=== PATIENT | male | born 1985 | race Caucasian/White ===

== ENCOUNTER 2021-03-12 16:45 | Emergency (ER) | payer SELFPAY ==
[2021-03-12] MEDS ORDERED: methylPREDNISolone Sodium Succinate 125 MG/2 ML SDV IM ONE (17:13)
[2021-03-12] MEDS ORDERED: Albuterol/Ipratropium 3.0-0.5 MG/3 ML Neb Soln NEB ONE (17:13)
[2021-03-12] MEDS ORDERED: Dexamethasone 10 MG/ML SDV PO ONE (17:20)
--- NOTE | 2021-03-12 17:20 | EDM.PDOC ---
ED HPI GENERAL MEDICAL PROBLEM - General Chief Complaint: Respiratory Problem Stated Complaint: SHORTNESS OF BREATH, COUGH Time Seen by Provider: 03/12/21 16:47 Source of Information: Reports: Patient History Limitations: Reports: No Limitations - History of Present Illness INITIAL COMMENTS - FREE TEXT/NARRATIVE: HISTORY AND PHYSICAL: History of present illness: Patient is a 35-year-old male with a history of morbid obesity, and type 2 diabetes, who presents emergency room today with concern of cough, shortness of breath, and generalized body aches since yesterday. Patient states that initially on , he thought that he was developing a sinus infection and was dizzy. Patient states he went to his primary care provider the following day who prescribed him amoxicillin for a sinus infection. Patient states that he has continued to take the amoxicillin over the course of the weekend but starting yesterday, was developing generalized body aches, intermittent chills, feeling as if he has had a fever but has not checked for 1, mild headache, and cough. Patient states starting today, he felt more short of breath and felt like his lungs were tight similar to asthma. Patient states that he has had asthma in the past but states that he outgrew this after his childhood and has not required any medications for this in quite some time. Patient states he has not taken anything for her symptoms today. Patient denies chest pain. Denies neck stiff ness, change in vision, syncope, or near syncope. Denies nausea, vomiting, abdominal pain, diarrhea, constipation, or dysuria. Has not noted any blood in urine or stool. Patient has been eating and drinking appropriately. Review of systems: As per history of present illness and below otherwise all systems reviewed and negative. Past medical history: As per history of present illness and as reviewed below otherwise noncontributory. Surgical history: As per history of present illness and as reviewed below otherwise noncontributory. Social history: See social history for further information Family history: As per history of present illness and as reviewed below otherwise noncontributory. Physical exam: General: Patient is alert, oriented, and in no acute distress. Patient sitting comfortably on exam table. Vitals stable and reviewed by me. HEENT: Atraumatic, normocephalic, pupils equal and reactive bilaterally, negative for conjunctival pallor or scleral icterus, mucous membranes moist, throat clear, neck supple, nontender, trachea midline. No drooling or trismus noted. No meningeal signs. No hot potato voice noted. Lungs: Dry cough on exam with expiratory wheezing throughout all lung fatima, Otherwise, breath sounds equal bilaterally, chest nontender. Patient speaking clearly without breathlessness, no wheezing or stridor, no accessory muscle use or respiratory distress. Heart: S1S2, regular rate and rhythm without overt murmur Abdomen: Soft, nondistended, nontender. Negative for masses or hepatosplenomegaly. Negative for costovertebral tenderness. Pelvis: Stable nontender. Genitourinary: Deferred. Rectal: Deferred. Skin: Intact, warm, dry. No lesions or rashes noted. Extremities: Atraumatic, negative for cords or calf pain. Neurovascular unremarkable. Neuro: Awake, alert, oriented. Cranial nerves II through XII unremarkable. Cerebellum unremarkable. Motor and sensory unremarkable throughout. Exam nonfocal. Medical Decision Making: Patient is a 35-year-old male who presents emergency room today with concern of cough, shortness of breath and generalized body aches since yesterday. Patient does have a history of type 2 diabetes and obesity. Upon arrival to the ED, patient is vitally stable and well-appearing on exam. He does have a dry cough on exam with expiratory wheezing throughout lung fatima. He did have a history of asthma as a child. Given this, will provide a dose of Decadron, and DuoNeb at this time and reassess patient. Also obtain cardiac evaluation. See Dr. Fernandez's dictation for specific EKG interpretation. Otherwise, sinus tachycardia with a rate of 105. No STEMI. Patient does have a mildly decreased white blood cell count at 3.79, and mild thrombocytopenia at 122. CMP does show mild hyponatremia at 134. Glucose elevation at 311, AST and ALT are elevated at 48 and 128 respectively. Troponin negative. COVID-19 is positive. Influenza negative. Chest x-ray shows no acute cardiopulmonary findings. D-dimer is elevated at 0.63 so will obtain angiography of the chest to rule out PE. Angiography of the chest Voices understanding and is agreeable to plan of care. Denies any further questions or concerns at this time. Diagnostics: COVID/Flu, EKG, CBC, CMP, CXR, Ddimer, Trop Therapeutics: Duoneb, Solumedrol Prescription: Proair inhaler, Outpatient monoclonal antibody infusion Rx Impression: COVID-19 viral infection Plan: 1. Your COVID-19 screening is positive. That means you do have the coronavirus and are considered contagious. Your vital signs and oxygen saturation are well enough that you were able to monitor your symptoms at home. Continue to monitor for trouble breathing, new confusion or inability to arouse, bluish lips or face or any of the other symptoms we discussed -if this occurs please return to the emergency room.Continue to monitor your health at home for worsening symptoms so that you can be taken care of and treated quickly if needed. 2. Please self quarantine until 10 days have passed since your symptoms began AND you are fever free (<100.4 degrees fahrenheit) for 24 hours without the use of fever-reducing medications AND symptoms are improving. You should restrict activities outside of your home, except for getting medical care. Do not go to work, school, or public areas. Avoid using public transportation, ride-sharing, or taxis. Inform any persons that you have been in contact with since you started becoming symptomatic that you have tested positive; they should be made aware and take the appropriate steps as needed. 3. You may alternate Tylenol and ibuprofen as needed for pain and fever management. 4. The [facility] health department will be calling you and following up with you. The [place] COVID 19 Hotline phone number , They are open Saturday - Saturday 7am - 7pm. Follow up with your primary care provider for re-evaluation and re-testing after quarantine and discuss when you should be seen. 6. For more specific guidelines regarding isolation/quarantine please visit this website. https://www.health.[place].gov/sites/www/files/documents/Files/ZOE/coronavi tyron/Factsheet_for_People_With_COVID-19.pdf Definitive disposition and diagnosis as appropriate pending reevaluation and review of above. - Related Data Allergies Allergy/AdvReac Type Severity Reaction Status Date / Time No Known Allergies Allergy Verified 03/12/21 17:08 Home Meds: Home Meds Albuterol Sulfate [Proair Hfa] 8.5 gm IH Q8HR PRN #1 [email or web address] 03/12/21 [Rx] Past Medical History HEENT History: Reports: None Cardiovascular History: Reports: Hypertension Respiratory History: Reports: Asthma Gastrointestinal History: Reports: None Genitourinary History: Reports: None Musculoskeletal History: Reports: None Neurological History: Reports: None Psychiatric History: Reports: None Endocrine/Metabolic History: Reports: Diabetes, Type II Insulin Pump Model and Case Work Aide: None Hematologic History: Reports: None Immunologic History: Reports: None Oncologic (Cancer) History: Reports: None Dermatologic History: Reports: None - Infectious Disease History Infectious Disease History: Reports: None - Past Surgical History Head Surgeries/Procedures: Reports: None Social & Family History - Caffeine Use Caffeine Use: Reports: Energy Drinks - Recreational Drug Use Recreational Drug Use: No ED ROS GENERAL - Review of Systems Review Of Systems: Comprehensive ROS is negative, except as noted in HPI. ED EXAM, GENERAL - Physical Exam Exam: See Below (See dictation) Course - Vital Signs Last Recorded V/S: Last Vital Signs Temp 97.9 F 03/12/21 17:08 Pulse 83 03/12/21 22:30 Resp 22 H 03/12/21 22:30 BP 131/91 H 03/12/21 22:30 Pulse Ox 97 03/12/21 22:30 - Orders/Labs/Meds Labs: Laboratory Tests 03/12/21 03/12/21 03/12/21 Range/Units 17:23 17:23 17:23 WBC 3.79 L (4.0-11.0) K/uL RBC 5.36 (4.50-5.90) M/uL Hgb 16.7 (13.0-17.0) g/dL Hct 46.9 (38.0-50.0) % MCV 87.5 (80.0-98.0) fL MCH 31.2 (27.0-32.0) pg MCHC 35.6 (31.0-37.0) g/dL RDW Std Deviation 44.0 (28.0-62.0) fl RDW Coeff of Genesis 14 (11.0-15.0) % Plt Count 122 L (150-400) K/uL MPV 10.30 (7.40-12.00) fL Neut % (Auto) 59.6 (48.0-80.0) % Lymph % (Auto) 29.6 (16.0-40.0) % Zavala % (Auto) 9.5 (0.0-15.0) % Eos % (Auto) 0.8 (0.0-7.0) % Baso % (Auto) 0.5 (0.0-1.5) % Neut # (Auto) 2.3 (1.4-5.7) K/uL Lymph # (Auto) 1.1 (0.6-2.4) K/uL Zavala # (Auto) 0.4 (0.0-0.8) K/uL Eos # (Auto) 0.0 (0.0-0.7) K/uL Baso # (Auto) 0.0 (0.0-0.1) K/uL Nucleated RBC % 0.0 /100WBC Nucleated RBCs # 0 K/uL D-Dimer, Quantitative 0.63 H (0.0-0.50) mg/L FEU Sodium 134 L (136-148) mmol/L Potassium 3.7 (3.5-5.1) mmol/L Chloride 99 (98-107) mmol/L Carbon Dioxide 25.2 (21.0-32.0) mmol/L BUN 11 (7.0-18.0) mg/dL Creatinine 0.9 (0.8-1.3) mg/dL Est Cr Clr Drug Dosing TNP Estimated GFR (MDRD) > 60.0 ml/min Glucose 311 H (74-106) mg/dL Calcium 8.0 L (8.5-10.1) mg/dL Total Bilirubin 0.6 (0.2-1.0) mg/dL AST 48 H (15-37) IU/L ALT 128 H (14-63) IU/L Alkaline Phosphatase 64 (46-116) U/L Troponin I < 0.050 (0.000-0.056) ng/mL Total Protein 7.8 (6.4-8.2) g/dL Albumin 3.2 L (3.4-5.0) g/dL Globulin 4.6 H (2.6-4.0) g/dL Albumin/Globulin Ratio 0.7 L (0.9-1.6) SARS-CoV-2 RNA (VANDANA) (NEGATIVE) 03/12/21 Range/Units 17:25 WBC (4.0-11.0) K/uL RBC (4.50-5.90) M/uL Hgb (13.0-17.0) g/dL Hct (38.0-50.0) % MCV (80.0-98.0) fL MCH (27.0-32.0) pg MCHC (31.0-37.0) g/dL RDW Std Deviation (28.0-62.0) fl RDW Coeff of Genesis (11.0-15.0) % Plt Count (150-400) K/uL MPV (7.40-12.00) fL Neut % (Auto) (48.0-80.0) % Lymph % (Auto) (16.0-40.0) % Zavala % (Auto) (0.0-15.0) % Eos % (Auto) (0.0-7.0) % Baso % (Auto) (0.0-1.5) % Neut # (Auto) (1.4-5.7) K/uL Lymph # (Auto) (0.6-2.4) K/uL Zavala # (Auto) (0.0-0.8) K/uL Eos # (Auto) (0.0-0.7) K/uL Baso # (Auto) (0.0-0.1) K/uL Nucleated RBC % /100WBC Nucleated RBCs # K/uL D-Dimer, Quantitative (0.0-0.50) mg/L FEU Sodium (136-148) mmol/L Potassium (3.5-5.1) mmol/L Chloride (98-107) mmol/L Carbon Dioxide (21.0-32.0) mmol/L BUN (7.0-18.0) mg/dL Creatinine (0.8-1.3) mg/dL Est Cr Clr Drug Dosing Estimated GFR (MDRD) ml/min Glucose (74-106) mg/dL Calcium (8.5-10.1) mg/dL Total Bilirubin (0.2-1.0) mg/dL AST (15-37) IU/L ALT (14-63) IU/L Alkaline Phosphatase (46-116) U/L Troponin I (0.000-0.056) ng/mL Total Protein (6.4-8.2) g/dL Albumin (3.4-5.0) g/dL Globulin (2.6-4.0) g/dL Albumin/Globulin Ratio (0.9-1.6) SARS-CoV-2 RNA (VANDANA) POSITIVE H (NEGATIVE) Meds: Medications Discontinued Medications Generic Name Dose Route Start Last Admin Trade Name Freaditi PRN Reason Stop Dose Admin Albuterol/Ipratropium 3 ml 03/12/21 17:13 03/12/21 17:20 Albuterol/Ipratropium 3.0-0.5 Mg/3 Ml Neb Soln NEB 03/12/21 17:14 3 ml ONETIME ONE Administration Dexamethasone 10 mg 03/12/21 17:20 03/12/21 17:31 Dexamethasone 10 Mg/Ml Sdv PO 03/12/21 17:21 10 mg ONETIME ONE Administration Iopamidol 100 ml 03/12/21 22:39 03/12/21 22:39 Iopamidol 755 Mg/Ml 500 Ml Multipack Bottle IVPUSH 03/12/21 22:40 100 ml ONETIME ONE Administration Methylprednisolone Sodium Succinate 125 mg 03/12/21 17:13 03/12/21 17:20 Methylprednisolone Sodium Succinate 125 Mg/2 Ml Sdv IM 03/12/21 17:14 125 mg ONETIME ONE Administration Departure - Departure Time of Disposition: 23:10 Disposition: Home, Self-Care 01 Clinical Impression: COVID-19 virus infection - Discharge Information Instructions: 10 Things You Can Do to Manage Your COVID-19 Symptoms at Home - [facility] (11/25/2020) Referrals: PCP,None [Primary Care Provider] - Forms: ED Department Discharge Additional Instructions: The following information is given to patients seen in the emergency department who are being discharged to home. This information is to outline your options for follow-up care. We provide all patients seen in our emergency department with a follow-up referral. The need for follow-up, as well as the timing and circumstances, are variable depending upon the specifics of your emergency department visit. If you don't have a primary care physician on staff, we will provide you with a referral. We always advise you to contact your personal physician following an emergency department visit to inform them of the circumstance of the visit and for follow-up with them and/or the need for any referrals to a consulting specialist. The emergency department will also refer you to a specialist when appropriate. This referral assures that you have the opportunity for follow-up care with a specialist. All of these measure are taken in an effort to provide you with optimal care, which includes your follow-up. Under all circumstances we always encourage you to contact your private physician who remains a resource for coordinating your care. When calling for follow-up care, please make the office aware that this follow-up is from your recent emergency room visit. If for any reason you are refused follow-up, please contact the [facility] Emergency Department at and asked to speak to the emergency department charge nurse. [facility] [address], [place] [address] [facility] [address] [place] [id number] 1. Your COVID-19 screening is positive. That means you do have the coronavirus and are considered contagious. Your vital signs and oxygen saturation are well enough that you were able to monitor your symptoms at home. Continue to monitor for trouble breathing, new confusion or inability to arouse, bluish lips or face or any of the other symptoms we discussed -if this occurs please return to the emergency room.Continue to monitor your health at home for worsening symptoms so that you can be taken care of and treated quickly if needed. 2. Please self quarantine until 10 days have passed since your symptoms began AND you are fever free (<100.4 degrees fahrenheit) for 24 hours without the use of fever-reducing medications AND symptoms are improving. You should restrict activities outside of your home, except for getting medical care. Do not go to work, school, or public areas. Avoid using public transportation, ride-sharing, or taxis. Inform any persons that you have been in contact with since you started becoming symptomatic that you have tested positive; they should be made aware and take the appropriate steps as needed. 3. You may alternate Tylenol and ibuprofen as needed for pain and fever management. 4. The [facility] department will be calling you and following up with you. The [place] COVID 19 Hotline phone number , They are open Saturday - Saturday 7am - 7pm. Follow up with your primary care provider for re-evaluation and re-testing after quarantine and discuss when you should be seen. 6. For more specific guidelines regarding isolation/quarantine please visit this website. https://www.health.[place].gov/sites/www/files/documents/Files/ZOE/coronavirus/Factsh eet_for_People_With_COVID-19.pdf Sepsis Event Note (ED) - Evaluation Sepsis Screening Result: No Definite Risk - Focused Exam Vital Signs: Vital Signs Temp Pulse Resp BP Pulse Ox 03/12/21 22:30 83 22 H 131/91 H 97 03/12/21 17:08 97.9 F 102 H 20 145/88 H 96
--- NOTE | 2021-03-12 17:21 | PCM.EKG ---
#1 Interpretation EKG Date: 03/12/21 Time: 17:21 EKG Interpretation Comments: Sinus tachycardia rate of 105 normal axis intervals no acute ischemia unremarkable EKG
--- NOTE | 2021-03-12 18:02 | CR ---
INDICATION: Chest pain TECHNIQUE: Single-view chest. FINDINGS: The lungs are clear. The heart, mediastinum and pulmonary vessels are of normal size. There is no evidence of pleural disease. Low lung volumes. IMPRESSION: Negative chest. Dictated by Susie Schultz MD @ 03/12/2021 6:00:48 PM (Electronically Signed)
[2021-03-12 18:12] LABS: BLOOD UREA NITROGEN,BUN 11 mg/dL (7.0-18.0); CARBON DIOXIDE,CO2 25.2 mmol/L (21.0-32.0); CHLORIDE,CL 99 mmol/L (98-107); GLUCOSE RANDOM 311 mg/dL (74-106); POTASSIUM,K 3.7 mmol/L (3.5-5.1); SODIUM,NA 134 mmol/L (136-148)
--- NOTE | 2021-03-12 22:10 | CT ---
INDICATION: Elevated D-dimer, COVID positive. TECHNIQUE: CT chest PE was acquired with 100 cc Omnipaque 350 IV contrast. COMPARISON: None. FINDINGS: Heart and vasculature: Contrast opacification of the pulmonary arterial tree is adequate. No sign of pulmonary embolism. No pericardial effusion. Thoracic aorta is normal in caliber. Lungs and pleural: No pleural effusion or pneumothorax. Diffuse ground-glass opacities both lungs. Calcified granuloma right upper lobe proved Lymph nodes/mediastinum: Calcified right hilar lymph nodes. Chest wall: No masses. Upper abdomen: Diffusely decreased density of the liver. Bones: Unremarkable for age. IMPRESSION: 1. No evidence of pulmonary embolus. 2. Diffuse bilateral ground-glass opacities consistent with viral pneumonia, presumed COVID-19 pneumonia. 3. Hepatic steatosis. 4. Old granulomatous disease. Please note that all CT scans at this facility use dose modulation, iterative reconstruction, and/or weight-based dosing when appropriate to reduce radiation dose to as low as reasonably achievable. Dictated by Ronnie Agee MD @ 03/12/2021 10:08:32 PM (Electronically Signed)
[2021-03-12] MEDS ORDERED: Iopamidol 755 MG/ML 500 ML Multipack Bottle IVPUSH ONE (22:39)
== END 2021-03-12 22:30 | disposition home or self-care (01) ==
LOC: MW.ED 16:45
DX: U07.1 COVID-19 (principal); I10 Essential (primary) hypertension; E11.9 Type 2 diabetes mellitus without complications
CPT/HCPCS: 36415; 71045; 71275; 80053; 84484; 85025; 85379; 87635; 87804; 93005; 96372; 99285; J1100; J2930; Q9967; J7620-GY; U0002